=== PATIENT | male | born 1970 | race Two or more races ===

== ENCOUNTER 2016-11-24 23:28 | Emergency (ER) | payer SELFPAY ==
[~2016-11-24] VITALS: Ht 170.2 cm; Wt 65.8 kg
[2016-11-24] MEDS ORDERED: HALOPERIDOL LACTATE INJ 5 MG/ML VIAL ONE (23:40)
[2016-11-24] MEDS ORDERED: diphenhydrAMINE HCL 50 MG/ML VIAL ONE (23:40)
[2016-11-24] MEDS ORDERED: LORAZEPAM INJ 2 MG/ML VIAL ONE (23:41)
[2016-11-24 23:57] LABS: BASOPHILS % (AUTO) 0.1 % (0.0-2.0); EOSINOPHILS # (AUTO) 0.1 /CMM (0.0-0.7); EOSINOPHILS % (AUTO) 0.5 % (0.0-6.0); HEMATOCRIT 48 % (39-51); HEMOGLOBIN 15.8 g/dL (13.5-17.5); LYMPHOCYTES # (AUTO) 1.7 /CMM (0.8-4.8); LYMPHOCYTES % (AUTO) 11.7 % (20.0-44.0); MEAN CORPUSCULAR HEMOGLOBIN 30 PG (26.0-33.0); MEAN CORPUSCULAR HGB CONC 33 g/dl (31.0-36.0); MEAN CORPUSCULAR VOLUME 90 fL (80-96); MONOCYTES # (AUTO) 0.9 /CMM (0.1-1.30); MONOCYTES % (AUTO) 6.2 % (2.0-12.0); NEUTROPHILS # (AUTO) 11.9 /CMM (1.8-8.9); NEUTROPHILS % (AUTO) 81.5 % (43.0-81.0); PLATELET COUNT (AUTO) 254 /CMM (150-450); RDW COEFFICIENT OF VARIATION 13.8 (11.5-15.0); RED BLOOD CELL COUNT(AUTO) 5.28 MIL/uL (4.5-6.0); WHITE BLOOD COUNT (AUTO) 14.6 K/uL (4.3-11.0)
[2016-11-25] MEDS ORDERED: HALOPERIDOL LACTATE INJ 5 MG/ML VIAL IM ONE
[2016-11-25] MEDS ORDERED: LORAZEPAM INJ 2 MG/ML VIAL IM/IV ONE
[2016-11-25] MEDS ORDERED: diphenhydrAMINE HCL 50 MG/ML VIAL IM ONE
--- NOTE | 2016-11-25 00:03 | NUR ---
RECEIVED REPORT FROM PRIMARY NURSE EDITH AND ASSUMED CARE AT THIS TIME. ALREAD MEDICATED ORDERED. RESTING QUIETLY WITH NO S/S OF DISTRESS. RESP EVEN AND UNLABORED. ON MONITOR. WILL CONTINUE TO MONITOR.
[2016-11-25 00:10] LABS: CALCIUM, SERUM 9.6 mg/dL (8.5-10.1); CARBON DIOXIDE 23 mmol/L (21-32); CHLORIDE 104 mmol/L (98-107); CREATININE 1.3 mg/dL (0.6-1.3); GLUCOSE 162 mg/dL (74-106); POTASSIUM 3.7 mmol/L (3.5-5.1); SODIUM SERUM 138 mmol/L (136-145); UREA NITROGEN, BLOOD 20 mg/dL (7-18)
[2016-11-25 00:15] LABS: CREATINE KINASE, TOTAL 1055 U/L (39-308)
[2016-11-25 00:17] LABS: ALANINE AMINOTRANSFERASE 34 U/L (12-78); ALBUMIN 4.5 g/dL (3.4-5.0); ALCOHOL, BLOOD < 3 mg/dL (0-0); ALKALINE PHOSPHATASE 71 U/L (46-116); ASPARTATE AMINOTRANSFERASE 41 U/L (15-37); BILIRUBIN,DIRECT 0.2 mg/dL (0.0-0.2); BILIRUBIN,TOTAL 1.3 mg/dL (0.2-1.0); TOTAL PROTEIN, SERUM 8.1 g/dL (6.4-8.2)
[2016-11-25 00:19] LABS: ACETAMINOPHEN 0 ug/ml (10-30); INR 0.99 (0.87-1.13); PROTHROMBIN TIME 10.3 SECS (9.5-12.7); SALICYLATE 0.9 mg/dL (2.8-20.0)
[2016-11-25] MEDS ORDERED: IV NS 0.9% 1,000 ML BAG IV ONE ×2 (00:30)
[2016-11-25 00:50] LABS: CREATINE KINASE MB 21.1 ng/mL (0-3.6)
--- NOTE | 2016-11-25 01:01 | NUR ---
MEDCIATED ORDERED AND STILL MNITORED.
[2016-11-25] MEDS ORDERED: Magnesium 1 GM/2 ML VIAL IV ONE (02:30)
--- NOTE | 2016-11-25 03:13 | NUR ---
REMAINS RESTING WITH NO S/S OF DISTRESS. RESP EVEN AND UNLABORED. STILL MONITORED
--- NOTE | 2016-11-25 04:15 | NUR ---
NO CHANGES FROM PREVIOUS ASSESSMENT. RESP EVEN AND UNLABORED.
--- NOTE | 2016-11-25 05:05 | NUR ---
POSITIONED FOR COMFORT. NAD NOTED.
[2016-11-25] MEDS ORDERED: Magnesium 1GM/D5W 100ML PREMIX 200 ML IV ONE (05:28)
--- NOTE | 2016-11-25 05:43 | NUR ---
DR. MACDONALD AT BEDSIDE SPEAKING TO PT.
--- NOTE | 2016-11-25 06:09 | NUR ---
INTERMITTENTLY WAKES UP AND FALS RIGHT BACK ASLEEP. DENIES ANY ACUTE SX'S.
--- NOTE | 2016-11-25 07:14 | NUR ---
Noted awake and walking to restroom. Denies si/hi or any physical c/o. Patient discharged to home in stable condition. Written and verbal after care instructions given. Patient verbalizes understanding of instruction. IV removed. Ambulatory with a steady gait
[2016-11-25 07:16] VITALS: BP 134/84
== END 2016-11-25 07:17 | disposition home or self-care (01) ==
LOC: ER 23:29
DX: R41.82 Altered mental status, unspecified (principal); E86.0 Dehydration; F22 Delusional disorders; M62.82 Rhabdomyolysis; D72.829 Elevated white blood cell count, unspecified; F19.10 Other psychoactive substance abuse, uncomplicated; R79.1 Abnormal coagulation profile
CPT/HCPCS: 36415 ×2; 80048; 80076; 80329; 82550 ×2; 82553; 82962; 85025; 85730; 93005; 96361; 96365; 96372 ×3; 99285; A4606; G0480 ×2; J1200; J1630; J2060; J3475; J7030 ×2; J7120; Z7610